=== PATIENT | male | born 1965 | race Caucasian/White ===

== ENCOUNTER 2017-01-10 08:49 | Inpatient (IN) | payer OTHER ==
[~2017-01-10] VITALS: Ht 152.4 cm; Wt 99.0 kg
--- NOTE | ~2017-01-10 | OP ---
Record Of Operation [facility] [address] [place]. [address] NAME: JOO PLASENCIA : 67 STATUS : ADM IN PAT#: [id number] AGE: 51 ADM/REG DATE : 01/10/17 MR#: [id number] REPORT SERV DATE: 01/14/17 DICTATED BY: JATIN CONTRERAS DATE: 01/14/17 REPORT STATUS : Draft TRANSCRIBED BY: MODL DATE: 01/14/17 DATE OF PROCEDURE: 01/14/2017 PREOPERATIVE DIAGNOSIS: 1. NSTEMI. 2. Three-vessel coronary disease. 3. Unstable angina. 4. Hypertension. 5. Hyperlipidemia. 6. Obstructive sleep apnea. 7. Tobacco abuse. POSTOPERATIVE DIAGNOSIS: 1. NSTEMI. 2. Three-vessel coronary disease. 3. Unstable angina. 4. Hypertension. 5. Hyperlipidemia. 6. Obstructive sleep apnea. 7. Tobacco abuse. OPERATION AND PROCEDURE PERFORMED: 1. Median sternotomy. 2. Extracorporeal circulation. 3. Urgent coronary artery bypass grafting x4, CHOPRA to left anterior descending, reverse greater saphenous vein graft to obtuse marginal #1, reverse greater saphenous vein graft to posterolateral branch from the left and reverse greater saphenous vein graft to the posterior descending artery. 4. NATACHA. 5. Endoscopic vein harvest to the right leg. 6. Prevena dressing placement. TELEPHONER: Jean Contreras. ANESTHESIOLOGIST: Dr. Bong Oquendo. TUBES AND DRAINS: A 24-Tunisian Tyson to the left; 32 straight mediastinal; atrial and ventricular pacing wires. POSTOPERATIVE CONDITION: Stable to CVICU. COMPLICATIONS: None. INTRAOPERATIVE FINDINGS: There were good targets generally with the exception of the LAD which was diffusely diseased. There was good ventricle. There was good conduit. There was no area to graft on the first diagonal. Unfortunately the vessel was too small after all of Record Of Operation [facility] [address] [place] [place]. [address] NAME: JOO PLASENCIA : 67 STATUS : ADM IN PAT#: [id number] AGE: 51 ADM/REG DATE : 01/10/17 MR#: [id number] REPORT SERV DATE: 01/14/17 DICTATED BY: JATIN CONTRERAS DATE: 01/14/17 REPORT STATUS : Draft TRANSCRIBED BY: MODL DATE: 01/14/17 the stents that were placed in it. It was less than a millimeter distal to the most distal part of the stent. Transesophageal echo pre shows EF 50%, trace MR, no AI, no . Post bypass showed EF 55 with trace MR, no AI, no grafts. DETAILS OF CARDIOPULMONARY BYPASS GRAFTIN. Graft #1, CHOPRA to left anterior descending was 1.75 mm target. 2. Graft #2, reverse greater saphenous vein graft to obtuse marginal #1, this was a 2 mm target. 3. Graft #3, reverse greater saphenous vein graft to posterolateral branch. This was a 1.75 mm target. 4. Graft #4, reverse greater saphenous vein graft to posterior descending artery. This was a 1.75 mm target. The LAD was diffusely diseased. There was excellent Doppler signals both pre and post protamine in all grafts. INDICATIONS FOR PROCEDURE: Mr. Plasencia is a 51-year-old gentleman with history of tobacco abuse and previous coronary interventions who presented to the ER with chest pain. He was found to have an NSTEMI. He was kept in the hospital for Plavix washout. Risks, benefits, and alternatives were discussed with the patient including but not limited to, bleeding, infection, stroke, , heart attack, need for future operations. All questions were answered. STS risks were discussed with the patient as well. Mortality risk less than 2%. Overall complication rate less than 20% were discussed with the patient and the family. All questions were answered. DETAILS OF PROCEDURE: The patient was brought to the operating room, placed supine on the operating room table. After satisfactory induction of general endotracheal anesthesia, he was prepped and draped in the usual sterile fashion. Working simultaneously, a median sternotomy was performed. Endoscopic vein harvest was performed from the right leg. Skin and subcutaneous tissues were divided. Clavipectoral fascia was divided. The sternum was divided in the midline. Sternal retractor was placed. Internal mammary artery was then harvested after placing the Rultract retractor from its takeoff under the subclavian vein to the bifurcation of the diaphragm. Systemic heparinization was achieved. After 3 minutes, the pedicle was clipped and divided at the bifurcation of the diaphragm. It was infiltrated with papaverine. Hemostasis was obtained. A 24-Tunisian Tyson was placed in the left pleural space and exteriorized. Rultract retractor was removed. Sternal retractor was placed. Thymic tissue was divided in the midline of the innominate vein. Pericardium was opened in the midline and T'd at the diaphragm. Pericardial well was created. Ascending aortic cannulation was achieved on the lesser curve of the aorta distal to the takeoff of the left subclavian through dual pursestring, antegrade root vent cardioplegia tack was placed and a dual stage venous cannula was placed through a pursestring in the right atrial appendage. The conduit was brought up and prepared for bypass. The internal mammary artery was brought through a wide V in the pericardium. After documentation of an adequate ACT, cardiopulmonary bypass was initiated. Targets were inspected. Targets were as mentioned in the findings of note, dual first diagonal. There was no area to graft secondary to multiple stents and the area distal to the stent, most distal portion of the stent being less than a millimeter in size. [place] this was too small to be able to bypass. Cross-clamp was brought up. Heart was arrested with cold antegrade cardioplegia. Intermittent cardioplegia was administered every 15 to 20 minutes throughout the remainder of the cross clamp. The distal Record Of Operation [facility] [address] [place]. [address] NAME: JOO PLASENCIA : 67 STATUS : ADM IN [facility]#: [id number] AGE: 51 ADM/REG DATE : 01/10/17 MR#: [id number] REPORT SERV DATE: 01/14/17 DICTATED BY: JATIN CONTRERAS DATE: 01/14/17 REPORT STATUS : Draft TRANSCRIBED BY: MAR DATE: 01/14/17 anastomoses were then performed as mentioned in the findings. All distal anastomoses were performed with 8-0 Surgipro. The veins were cut to length, spatulated, and running continuous anastomoses were then performed in an end-to-side fashion between the vein and the ascending aorta after enlarging the proximal aortotomies with 5.2 mm punch vein graft, markers were placed. The internal mammary artery was brought down through a wide V in the pericardium and anastomosed to a soft spot on the anterior surface of the LAD. There was disease distal to this that could be palpated, but however did not find a soft spot to be able to clear the distal disease. The vein grafts were de-aired. The cross-clamp was removed. There had been excellent flow in the left internal mammary artery and in the LAD both proximal and distal to the anastomosis. Pedicle was attached to the heart in two places. Atrial and ventricular pacing wires were placed. The patient was able to be weaned from cardiopulmonary bypass without incident. Protamine was administered. The patient was decannulated. All cannulation sites were oversewn with 4-0 Prolene. The hemostasis was obtained. The pericardium was loosely reapproximated over the ascending aorta and over the RV. A 32-Tunisian chest tube was placed in the anterior mediastinum, exteriorized and secured. The sternum was then reapproximated using stainless steel sternal wires. Some of these were double wires. Clavipectoral fascia was reapproximated using running #1 StrataFix and subcutaneous tissues closed using 2-0 Monocryl and the skin closed with a 2-0 StrataFix. Prevena dressing was placed. The patient was transferred to the CVICU in critical, stable condition. [facility] Jatin Contreras MD / [id number] CC: Mitchell Russo MD
--- NOTE | ~2017-01-10 | CN ---
Consultation Report [facility] [address] [place]. [address] NAME: JOO DONG : 67 STATUS : ADM IN PAT#: [id number] AGE: 51 ADM/REG DATE : 01/10/17 MR#: [id number] REPORT SERV DATE: 01/11/17 DICTATED BY: DARIUS OLVERA DATE: 01/10/17 REPORT STATUS : Draft TRANSCRIBED BY: MODL DATE: 01/10/17 CONSULTATION NOTE DATE OF CONSULTATION: 01/10/2017 ATTENDING VICE PRESIDENT COMPLIANCE: Praveen Stevens M.D. REASON FOR CONSULTATION: Three-vessel flow-limiting coronary artery disease, consideration for urgent coronary artery bypass grafting in the context of recent non-ST elevation myocardial infarction. CHIEF COMPLAINT: "I had chest pain yesterday." HISTORY OF PRESENT ILLNESS: This is a 51-year-old white male with history of coronary disease and five or six previously placed stents, who also has a family history of coronary disease. He smokes up to two packs per day of cigarettes, has not smoked in the last two days since admission to the hospital. He tells me that yesterday he had onset of severe substernal chest pain that occurred at rest. He waited for about 45 minutes and then went to the emergency department at [facility], and there he was given nitroglycerin which relieved his pain. His troponin I was initially mildly elevated and increased up to 1.46. His EKG was abnormal showing Q-waves and T-wave changes in the inferior leads. He did not have any further chest discomfort and continues to be pain-free. He was transferred to [facility] for coronary arteriogram and this demonstrated severe three-vessel flow-limiting coronary artery disease, with mildly depressed left ventricular function and inferior hypokinesis on ventriculogram. We were asked to see for consideration of urgent coronary artery bypass grafting and this was discussed with the patient and his family in the room today. PRIOR MEDICAL HISTORY: 1. Coronary artery disease, status post previous PCI with six stents. 2. Obstructive sleep apnea, wears CPAP. 3. Hypertension, on medication. 4. Hyperlipidemia, on medications. 5. Umbilical hernia. 6. Tobacco abuse. 7. Alcohol abuse. MEDICATIONS: Taken at home include aspirin 325 mg daily, Lipitor 40 mg p.o. h.s., lisinopril 10 mg daily, metoprolol 25 mg p.o. daily, Plavix 75 mg p.o. daily. SOCIAL HISTORY: He is , works in a machine shop, and drinks beer on a daily basis. He reports that he smokes up to two packs per day of cigarettes and has for about 25 years. His last cigarette was when he came to the hospital yesterday. Consultation Report [address] [place]. [address] NAME: JOO DONG : 67 STATUS : ADM IN [facility]#: [id number] AGE: 51 ADM/REG DATE : 01/10/17 MR#: [id number] REPORT SERV DATE: 01/11/17 DICTATED BY: DARIUS OLVERA DATE: 01/10/17 REPORT STATUS : Draft TRANSCRIBED BY: MAR DATE: 01/10/17 FAMILY HISTORY: Father with high blood pressure and hypercholesterolemia and heart failure, mother with hypertension. Mother is living, father age 67. REVIEW OF SYSTEMS: GENERAL: Negative for any recent weight change, fevers, chills, night sweats, or malaise. Denies any bone or joint pain. ENT: Negative. RESPIRATORY: Positive for occasional cough, more so when he is not smoking cigarettes. Denies any history of COPD or wheezing. CV: Positive for prior myocardial infarction, previous stenting, chest pain. Denies any palpitations. Denies any history of syncope or near syncope. GI: Negative. MUSCULOSKELETAL: Negative. : Negative. Neuro/psych: Negative. SKIN, HAIR, AND NAILS: Negative for lesions or masses or rashes. HEME/ONC: Negative for free bleeding, easy bruising, or prior cancer. ENDOCRINE: Negative for diabetes or thyroid problems. PHYSICAL EXAMINATION: GENERAL: This is a pleasant, obese white male, in no acute distress. VITAL SIGNS: Weight is 99.79 kg, height 180.34 cm, blood pressure 127/85, temperature 97.8, pulse 69 and regular, respirations 17 regular and unlabored, saturation is 93% on room air. HEENT: Normocephalic, balding, atraumatic. Pupils are equal, round, reactive to light and accommodation. Sclerae are clear, conjunctivae pink. No xanthelasma. Oral and buccal mucosa pink and moist. Teeth are nicotine stained. NECK: Supple. No restricted range of motion. No carotid bruits. No jugular venous distention. CHEST: No deformity. No use of accessory muscles. He has inspiratory rhonchi on the left, no wheezes. No crackles. BREASTS: Not examined. CV: Regular rate and rhythm without murmur or rub. He has palpable and symmetric central and peripheral pulses. No clubbing, no cyanosis, no edema. He has some lower extremity varicosities noted on examination. ABDOMEN: Soft, obese, nontender with normoactive bowel sounds. No hepatosplenomegaly. /RECTAL: Declined. MUSCULOSKELETAL: No kyphoscoliosis, no asymmetry. NEUROLOGIC: Alert and oriented to day, date, place, and situation. Speech is clear, fluent, with no focal deficits. No tremors. SKIN, HAIR, AND NAILS: No lesions or masses. No bruises or rashes. He has tattoo over the left upper back. DATA: His troponin I at [facility] was 1.46. EKG showed normal sinus rhythm with Q-waves and T-wave changes in the inferior leads. His catheterization showed in-stent restenosis of the Consultation Report [address] [address] NAME: JOO DONG : 67 STATUS : ADM IN [facility]#: [id number] AGE: 51 ADM/REG DATE : 01/10/17 MR#: [id number] REPORT SERV DATE: 01/11/17 DICTATED BY: DARIUS OLVERA DATE: 01/10/17 REPORT STATUS : Draft TRANSCRIBED BY: MAR DATE: 01/10/17 right coronary artery with mid distal occlusion and a left to right collateralization. The LAD with proximal stenosis and diagonal with ostial stenosis. His circumflex showed in- stent restenoses of 99% that affected the obtuse marginal. The ventriculogram showed inferior hypokinesis. LABS: CBC showed WBC 7.3, hemoglobin 16.7 g, hematocrit 48.7%, platelets 170. Electrolyte profile; sodium 141, potassium 4.0, chloride 107, CO2 of 26, BUN 12, creatinine 1.0. Lipid profile showed total cholesterol elevated at 203, HDL is 47, LDL was elevated at 107, and triglycerides elevated at 246. IMPRESSION: 1. Three-vessel flow-limiting coronary artery disease. 2. Recent non-ST elevation myocardial infarction. 3. Tobacco abuse. 4. Alcohol abuse. PLAN: I discussed with the patient and his family today possible coronary artery bypass grafting, usual perioperative course, indications, benefits, and serious risks which include, but are not limited to things such as bleeding, need for blood or blood product transfusion and their attendant risks, damage to the kidneys including kidney failure and dialysis, damage to the liver or the lungs, heart attack, stroke, abnormal heart rhythm, deep sternal infection, mediastinitis, and even . The patient indicates his understanding and is willing to proceed. He does have targets that would make him an acceptable candidate for surgical revascularization. Using Society of Thor[employer] database, predicted risk of mortality was 0.557%, morbidity or mortality 8.107%. This was discussed with the patient his family today. Because of his chronic use of dual antiplatelet therapy with aspirin and Plavix, he will need time for platelet recovery. We will discuss with surgeons and then give the patient his family a time table of when we will be able to get his surgery done. We appreciate very much the opportunity to participate in this gentleman's care. Sincerely, JET/MAR Darius Olvera N.P. / [id number] CC: Mitchell Russo MD
[2017-01-10] MEDS ORDERED: ASA5GR PO (10:01)
[2017-01-10] MEDS ORDERED: LIPITOR40 PO (10:02)
[2017-01-10] MEDS ORDERED: PRIN10 PO (10:03)
[2017-01-10] MEDS ORDERED: MOMUD PO (10:04)
[2017-01-10 10:05] LABS: BASOPHILS 0.5 %; BASOPHILS ABSOLUTE 0.04 10/3/uL (0.0-0.16); EOSINOPHILS 5.8 %; EOSINOPHILS ABSOLUTE 0.42 10/3/uL (0.0-0.53); HEMATOCRIT 48.6 % (40.0-51.0); HEMOGLOBIN 16.7 g/dL (13.6-17.8); IMMATURE GRANULOCYTES 0.3 %; IMMATURE GRANULOCYTES ABSOLUTE 0.02 10/3/uL (0.0-0.11); LYMPHOCYTES ABSOLUTE 2.04 10/3/uL (0.67-4.30); MANUAL DIFF NO %; MEAN CORPUS HGB CONC 34.4 g/dL (32.0-36.0); MEAN CORPUSCULAR HEMOGLOB 32.7 pg (26.0-34.0); MEAN CORPUSCULAR VOLUME 95.3 fL (80-100); MEAN PLATELET VOLUME 9.8 fL (9.2-13.0); MONOCYTES 9.2 %; MONOCYTES ABSOLUTE 0.67 10/3/uL (0.21-1.20); NEUTROPHILS 56.2 %; NEUTROPHILS ABSOLUTE 4.09 10/3/uL (2.02-8.40); PLATELET COUNT 170 10/3/uL (150-400); RBC DISTRIBUTION WIDTH 13.5 % (12.0-16.0); WHITE BLOOD CELLS 7.3 10/3/uL (4.5-10.5)
[2017-01-10] MEDS ORDERED: HABIT21 TOP (10:06)
[2017-01-10] MEDS ORDERED: LOP50 PO (10:07)
[2017-01-10] MEDS ORDERED: PLAVIX PO (10:08)
[2017-01-10] MEDS ORDERED: 8 HOUR650 MG PO (10:12)
[2017-01-10 10:20] LABS: BUN (BLOOD UREA NITROGEN) 12 MG/DL (6-23); CALCIUM, SERUM 9.3 MG/DL (8.5-10.4); CHLORIDE, SERUM 107 MMOL/L (96-112); CHOL/HDL RATIO(NOT ORDER) 4.3 (0-5); CHOLESTEROL 203 MG/DL (< 200); CO2 (CARBON DIOXIDE) 26 MMOL/L (24-34); GFR AFRICAN AMERICAN 101 ML/MIN (>=60); GFR NON AFRICAN AMERICAN 87 ML/MIN (>=60); GLUCOSE, SERUM 103 MG/DL (60-99); HDL CHOLESTEROL 47 MG/DL (> 39); LDL CHOLESTEROL 107 MG/DL (< 130); NON-HDL CHOLESTEROL 156 MG/DL (< 160); SODIUM, SERUM 141 MMOL/L (135-148); TRIGLYCERIDE 246 MG/DL (< 150)
[2017-01-11 06:20] LABS: BASOPHILS 0.7 %; BASOPHILS ABSOLUTE 0.04 10/3/uL (0.0-0.16); EOSINOPHILS 4.1 %; EOSINOPHILS ABSOLUTE 0.25 10/3/uL (0.0-0.53); HEMATOCRIT 45.6 % (40.0-51.0); HEMOGLOBIN 15.4 g/dL (13.6-17.8); IMMATURE GRANULOCYTES 0.3 %; IMMATURE GRANULOCYTES ABSOLUTE 0.02 10/3/uL (0.0-0.11); LYMPHOCYTES 20.5 %; LYMPHOCYTES ABSOLUTE 1.25 10/3/uL (0.67-4.30); MANUAL DIFF NO %; MEAN CORPUS HGB CONC 33.8 g/dL (32.0-36.0); MEAN CORPUSCULAR HEMOGLOB 32.2 pg (26.0-34.0); MEAN CORPUSCULAR VOLUME 95.4 fL (80-100); MEAN PLATELET VOLUME 9.3 fL (9.2-13.0); MONOCYTES 9.9 %; NEUTROPHILS 64.5 %; NEUTROPHILS ABSOLUTE 3.93 10/3/uL (2.02-8.40); PLATELET COUNT 149 10/3/uL (150-400); RBC DISTRIBUTION WIDTH 13.5 % (12.0-16.0); RED CELL COUNT 4.78 10/6/uL (4.7-6.1); WHITE BLOOD CELLS 6.1 10/3/uL (4.5-10.5)
[2017-01-11 06:29] LABS: BUN (BLOOD UREA NITROGEN) 11 MG/DL (6-23); CALCIUM, SERUM 8.8 MG/DL (8.5-10.4); CHLORIDE, SERUM 108 MMOL/L (96-112); CO2 (CARBON DIOXIDE) 25 MMOL/L (24-34); CREATININE 0.96 MG/DL (0.70-1.30); GFR AFRICAN AMERICAN 106 ML/MIN (>=60); GFR NON AFRICAN AMERICAN 92 ML/MIN (>=60); GLUCOSE, SERUM 105 MG/DL (60-99); POTASSIUM, SERUM 3.8 MMOL/L (3.5-5.3); SODIUM, SERUM 141 MMOL/L (135-148)
[2017-01-11 11:55] LABS: HEMATOCRIT 46.2 % (40.0-51.0); HEMOGLOBIN 15.4 g/dL (13.6-17.8)
[2017-01-11 14:11] LABS: PARTIAL THROMBO TIME 27.5 SEC (22.5-37.2); PROTIME (NOT ORD) 13.3 SEC (12.0-14.5)
[2017-01-11] MEDS ORDERED: ATIVAN 1 MG IV (15:38)
[2017-01-11] MEDS ORDERED: NITROSTAT0.4 MG SL (15:39)
[2017-01-11] MEDS ORDERED: ONDANSETRON IV (15:40)
[2017-01-11] MEDS ORDERED: THERGRANM PO (15:42)
[2017-01-11] MEDS ORDERED: HABIT21 TOP (15:42)
[2017-01-11] MEDS ORDERED: FOLIC PO (15:43)
[2017-01-11] MEDS ORDERED: CYANO1000T PO (15:43)
[2017-01-11] MEDS ORDERED: TOPXL25 PO (16:19)
[2017-01-12 04:27] LABS: BASOPHILS 0.7 %; BASOPHILS ABSOLUTE 0.05 10/3/uL (0.0-0.16); EOSINOPHILS 4.6 %; EOSINOPHILS ABSOLUTE 0.33 10/3/uL (0.0-0.53); HEMATOCRIT 47.5 % (40.0-51.0); HEMOGLOBIN 16.3 g/dL (13.6-17.8); IMMATURE GRANULOCYTES 0.4 %; IMMATURE GRANULOCYTES ABSOLUTE 0.03 10/3/uL (0.0-0.11); LYMPHOCYTES 29.8 %; LYMPHOCYTES ABSOLUTE 2.16 10/3/uL (0.67-4.30); MEAN CORPUS HGB CONC 34.3 g/dL (32.0-36.0); MEAN CORPUSCULAR HEMOGLOB 32.7 pg (26.0-34.0); MEAN CORPUSCULAR VOLUME 95.4 fL (80-100); MEAN PLATELET VOLUME 9.5 fL (9.2-13.0); MONOCYTES 9.4 %; MONOCYTES ABSOLUTE 0.68 10/3/uL (0.21-1.20); NEUTROPHILS 55.1 %; NEUTROPHILS ABSOLUTE 3.99 10/3/uL (2.02-8.40); PLATELET COUNT 151 10/3/uL (150-400); RBC DISTRIBUTION WIDTH 13.2 % (12.0-16.0); RED CELL COUNT 4.98 10/6/uL (4.7-6.1); WHITE BLOOD CELLS 7.2 10/3/uL (4.5-10.5)
[2017-01-12 04:28] LABS: MANUAL DIFF NO %
[2017-01-12 04:38] LABS: BUN (BLOOD UREA NITROGEN) 12 MG/DL (6-23); CHLORIDE, SERUM 106 MMOL/L (96-112); CO2 (CARBON DIOXIDE) 25 MMOL/L (24-34); CREATININE 1.01 MG/DL (0.70-1.30); GFR AFRICAN AMERICAN 100 ML/MIN (>=60); GFR NON AFRICAN AMERICAN 86 ML/MIN (>=60); GLUCOSE, SERUM 101 MG/DL (60-99); POTASSIUM, SERUM 3.8 MMOL/L (3.5-5.3); SODIUM, SERUM 139 MMOL/L (135-148)
[2017-01-12 10:22] LABS: TEG - ANGLE 54.8 DEG (53-72); TEG - MAXIMUM AMPLITUDE 67.2 MM (50-70)
[2017-01-12 10:23] LABS: TEG - COAGULATION INDEX -3.1 (-3 TO 3); TEG PLAVIX/EFFIENT/TICLID(ADP) 69.5 % INHIB (< 40)
[2017-01-13 02:32] LABS: BASOPHILS 0.6 %; BASOPHILS ABSOLUTE 0.05 10/3/uL (0.0-0.16); EOSINOPHILS 5.2 %; EOSINOPHILS ABSOLUTE 0.45 10/3/uL (0.0-0.53); HEMATOCRIT 47.5 % (40.0-51.0); HEMOGLOBIN 16.3 g/dL (13.6-17.8); IMMATURE GRANULOCYTES 0.2 %; IMMATURE GRANULOCYTES ABSOLUTE 0.02 10/3/uL (0.0-0.11); LYMPHOCYTES 27.2 %; LYMPHOCYTES ABSOLUTE 2.36 10/3/uL (0.67-4.30); MEAN CORPUS HGB CONC 34.3 g/dL (32.0-36.0); MEAN CORPUSCULAR HEMOGLOB 32.5 pg (26.0-34.0); MEAN CORPUSCULAR VOLUME 94.6 fL (80-100); MEAN PLATELET VOLUME 9.5 fL (9.2-13.0); MONOCYTES 10.3 %; MONOCYTES ABSOLUTE 0.89 10/3/uL (0.21-1.20); NEUTROPHILS 56.5 %; PLATELET COUNT 161 10/3/uL (150-400); RBC DISTRIBUTION WIDTH 13.3 % (12.0-16.0); RED CELL COUNT 5.02 10/6/uL (4.7-6.1); WHITE BLOOD CELLS 8.7 10/3/uL (4.5-10.5)
[2017-01-13 02:33] LABS: MANUAL DIFF NO %
[2017-01-13 02:51] LABS: ALBUMIN 3.9 G/DL (3.5-5.0); ALKALINE PHOSPHATASE 91 U/L (45-117); BUN (BLOOD UREA NITROGEN) 10 MG/DL (6-23); CALCIUM, SERUM 9.4 MG/DL (8.5-10.4); CHLORIDE, SERUM 105 MMOL/L (96-112); CREATININE 1.05 MG/DL (0.70-1.30); GFR AFRICAN AMERICAN 95 ML/MIN (>=60); GFR NON AFRICAN AMERICAN 82 ML/MIN (>=60); GLOBULIN 3.8 G/DL (2.5-4.1); GLUCOSE, SERUM 104 MG/DL (60-99); IRON BINDING CAPACITY 391 MCG/DL (250-450); POTASSIUM, SERUM 4.3 MMOL/L (3.5-5.3); SGPT(ALT) 52 U/L (5-65); SODIUM, SERUM 139 MMOL/L (135-148); TOTAL BILIRUBIN 0.3 MG/DL (0-1.2); TOTAL PROTEIN 7.7 G/DL (6.0-8.5)
[2017-01-13 03:20] LABS: PARTIAL THROMBO TIME 139.8 SEC (22.5-37.2)
[2017-01-13 03:30] LABS: % IRON SAT 41 % (20-50); CO2 (CARBON DIOXIDE) 30 MMOL/L (24-34); IRON, SERUM 161 MCG/DL (35-150); SGOT(AST) 32 U/L (5-40)
[2017-01-13 04:04] LABS: PROTIME (NOT ORD) 12.7 SEC (12.0-14.5)
[2017-01-13 08:53] LABS: TEG - ANGLE 51.5 DEG (53-72); TEG - COAGULATION INDEX -4.7 (-3 TO 3); TEG - MAXIMUM AMPLITUDE 60.6 MM (50-70); TEG - RATE 10.9 MIN (5.0-10.0)
[2017-01-13 08:54] LABS: MAX AMP (ADP) 40.6 MM (35-68); TEG PLAVIX/EFFIENT/TICLID(ADP) 40.7 % INHIB (< 40)
[2017-01-13 11:58] LABS: WBC (NOT ORDERED) (RFLEX) 0 (0-5)
[2017-01-13 12:11] LABS: ASCORBIC ACID (UR NOT ORDER) NEG (NEG); BILIRUBIN, URINE NEGATIVE (NEG); KETONE, URINE NEGATIVE (NEG); LEUKOCYTE ESTERASE(NOT OR NEG (NEG)
[2017-01-14 04:29] LABS: BASOPHILS 0.6 %; BASOPHILS ABSOLUTE 0.05 10/3/uL (0.0-0.16); EOSINOPHILS 5.2 %; EOSINOPHILS ABSOLUTE 0.45 10/3/uL (0.0-0.53); HEMATOCRIT 49.1 % (40.0-51.0); HEMOGLOBIN 16.8 g/dL (13.6-17.8); IMMATURE GRANULOCYTES 0.2 %; IMMATURE GRANULOCYTES ABSOLUTE 0.02 10/3/uL (0.0-0.11); LYMPHOCYTES 27.9 %; LYMPHOCYTES ABSOLUTE 2.42 10/3/uL (0.67-4.30); MEAN CORPUS HGB CONC 34.2 g/dL (32.0-36.0); MEAN CORPUSCULAR HEMOGLOB 32.1 pg (26.0-34.0); MEAN CORPUSCULAR VOLUME 93.9 fL (80-100); MEAN PLATELET VOLUME 9.8 fL (9.2-13.0); MONOCYTES 11.2 %; MONOCYTES ABSOLUTE 0.97 10/3/uL (0.21-1.20); NEUTROPHILS 54.9 %; NEUTROPHILS ABSOLUTE 4.76 10/3/uL (2.02-8.40); PLATELET COUNT 165 10/3/uL (150-400); RBC DISTRIBUTION WIDTH 13.3 % (12.0-16.0); RED CELL COUNT 5.23 10/6/uL (4.7-6.1); WHITE BLOOD CELLS 8.7 10/3/uL (4.5-10.5)
[2017-01-14 04:30] LABS: MANUAL DIFF NO %
[2017-01-14 04:33] LABS: PROTIME (NOT ORD) 13.3 SEC (12.0-14.5)
[2017-01-14 04:46] LABS: % IRON SAT 38 % (20-50); A/G RATIO 1.1 (0.7-1.9); ALBUMIN 4.1 G/DL (3.5-5.0); ALKALINE PHOSPHATASE 89 U/L (45-117); BUN (BLOOD UREA NITROGEN) 11 MG/DL (6-23); CALCIUM, SERUM 9.5 MG/DL (8.5-10.4); CHLORIDE, SERUM 103 MMOL/L (96-112); CO2 (CARBON DIOXIDE) 27 MMOL/L (24-34); CREATININE 1.08 MG/DL (0.70-1.30); GFR AFRICAN AMERICAN 92 ML/MIN (>=60); GFR NON AFRICAN AMERICAN 80 ML/MIN (>=60); GLOBULIN 3.6 G/DL (2.5-4.1); GLUCOSE, SERUM 100 MG/DL (60-99); IRON BINDING CAPACITY 382 MCG/DL (250-450); IRON, SERUM 147 MCG/DL (35-150); POTASSIUM, SERUM 3.7 MMOL/L (3.5-5.3); SGOT(AST) 37 U/L (5-40); SGPT(ALT) 74 U/L (5-65); SODIUM, SERUM 139 MMOL/L (135-148); TOTAL BILIRUBIN 0.6 MG/DL (0-1.2); TOTAL PROTEIN 7.7 G/DL (6.0-8.5)
[2017-01-14 05:19] LABS: TEG - ANGLE 57 DEG (53-72); TEG - COAGULATION INDEX -2.8 (-3 TO 3); TEG - MAXIMUM AMPLITUDE 63.4 MM (50-70); TEG - RATE 9.5 MIN (5.0-10.0)
[2017-01-14 05:20] LABS: MAX AMP (ADP) 44.1 MM (35-68); TEG PLAVIX/EFFIENT/TICLID(ADP) 36.1 % INHIB (< 40)
[2017-01-14 12:20] LABS: BE (BASE EXCESS) -2.6 MEQ/L (0 +/- 2.5); INSTRUMENT SERIAL # 11843; PCO2 (CO2 TENSION) 41 MMHG (35-45); PO2 (O2 TENSION) 140 MMHG (79-93); pH 7.36 (7.37-7.43)
[2017-01-14 12:21] LABS: CARBOXYHEMOGLOBIN 0.6 % (0-3); HCO3 (ACTUAL BICARBONATE) 22.6 MEQ/L (23-27); METHEMOGLOBIN 0.4 % (0-3); MODE SIMV; O2 CONTENT 20.7 VOL% (18-24); OPERATOR ID 19104; SAMPLE Arterial; TIDAL VOLUME 700 ML
[2017-01-14 12:29] LABS: HEMOGLOBIN 14.3 g/dL (13.6-17.8); PLATELET COUNT 124 10/3/uL (150-400)
[2017-01-14 12:30] LABS: HEMATOCRIT 41.3 % (40.0-51.0)
[2017-01-14 12:37] LABS: FIBRINOGEN 327 MG/DL (230-462); INTERNATIONAL NORMAL RATI 1.2 UNITS (-)
[2017-01-14 12:45] LABS: BUN (BLOOD UREA NITROGEN) 13 MG/DL (6-23); CALCIUM, SERUM 9.3 MG/DL (8.5-10.4); CHLORIDE, SERUM 110 MMOL/L (96-112); CO2 (CARBON DIOXIDE) 24 MMOL/L (24-34); CREATININE 1.28 MG/DL (0.70-1.30); GFR AFRICAN AMERICAN 75 ML/MIN (>=60); GFR NON AFRICAN AMERICAN 65 ML/MIN (>=60); GLUCOSE, SERUM 110 MG/DL (60-99); SODIUM, SERUM 141 MMOL/L (135-148)
[2017-01-14 15:48] LABS: BE (BASE EXCESS) -3.9 MEQ/L (0 +/- 2.5); CARBOXYHEMOGLOBIN 0.7 % (0-3); DEVICE HFNC; HCO3 (ACTUAL BICARBONATE) 23.1 MEQ/L (23-27); HEMOBLOGIN CONTENT 16.7 G/DL (14-18); INSTRUMENT SERIAL # 11843; METHEMOGLOBIN 0.3 % (0-3); O2 CONTENT 22.2 VOL% (18-24); OPERATOR ID 19104; PCO2 (CO2 TENSION) 49 MMHG (35-45); PO2 (O2 TENSION) 88 MMHG (79-93); SAMPLE Arterial; pH 7.29 (7.37-7.43)
[2017-01-14 17:22] LABS: HEMATOCRIT 45.4 % (40.0-51.0)
[2017-01-14 17:30] LABS: POTASSIUM, SERUM 4.2 MMOL/L (3.5-5.3)
[2017-01-15 01:26] LABS: HEMOGLOBIN 15.5 g/dL (13.6-17.8)
[2017-01-15 01:34] LABS: POTASSIUM, SERUM 4.3 MMOL/L (3.5-5.3)
[2017-01-15 04:24] LABS: BASOPHILS 0.1 %; BASOPHILS ABSOLUTE 0.01 10/3/uL (0.0-0.16); EOSINOPHILS 0 %; HEMATOCRIT 43.3 % (40.0-51.0); HEMOGLOBIN 14.6 g/dL (13.6-17.8); IMMATURE GRANULOCYTES 0.3 %; IMMATURE GRANULOCYTES ABSOLUTE 0.05 10/3/uL (0.0-0.11); LYMPHOCYTES 6.6 %; LYMPHOCYTES ABSOLUTE 1.02 10/3/uL (0.67-4.30); MEAN CORPUS HGB CONC 33.7 g/dL (32.0-36.0); MEAN CORPUSCULAR HEMOGLOB 32.1 pg (26.0-34.0); MEAN CORPUSCULAR VOLUME 95.2 fL (80-100); MEAN PLATELET VOLUME 10.4 fL (9.2-13.0); MONOCYTES 10.8 %; MONOCYTES ABSOLUTE 1.66 10/3/uL (0.21-1.20); NEUTROPHILS 82.2 %; NEUTROPHILS ABSOLUTE 12.68 10/3/uL (2.02-8.40); PLATELET COUNT 141 10/3/uL (150-400); RBC DISTRIBUTION WIDTH 13.8 % (12.0-16.0); RED CELL COUNT 4.55 10/6/uL (4.7-6.1)
[2017-01-15 04:25] LABS: WHITE BLOOD CELLS 15.4 10/3/uL (4.5-10.5)
[2017-01-15 04:26] LABS: MANUAL DIFF NO %
[2017-01-15 04:39] LABS: CALCIUM, SERUM 8.8 MG/DL (8.5-10.4); CHLORIDE, SERUM 106 MMOL/L (96-112); CO2 (CARBON DIOXIDE) 25 MMOL/L (24-34); CREATININE 1.18 MG/DL (0.70-1.30); GFR AFRICAN AMERICAN 83 ML/MIN (>=60); GFR NON AFRICAN AMERICAN 72 ML/MIN (>=60); POTASSIUM, SERUM 4.1 MMOL/L (3.5-5.3); SODIUM, SERUM 139 MMOL/L (135-148)
[2017-01-15 04:42] LABS: BUN (BLOOD UREA NITROGEN) 19 MG/DL (6-23); GLUCOSE, SERUM 91 MG/DL (60-99)
[2017-01-15 04:43] LABS: INTERNATIONAL NORMAL RATI 1.1 UNITS (-); PROTIME (NOT ORD) 14.1 SEC (12.0-14.5)
[2017-01-16 07:00] LABS: BASOPHILS 0.1 %; BASOPHILS ABSOLUTE 0.02 10/3/uL (0.0-0.16); EOSINOPHILS 0.1 %; EOSINOPHILS ABSOLUTE 0.01 10/3/uL (0.0-0.53); HEMATOCRIT 41.9 % (40.0-51.0); HEMOGLOBIN 14.1 g/dL (13.6-17.8); IMMATURE GRANULOCYTES 0.4 %; IMMATURE GRANULOCYTES ABSOLUTE 0.07 10/3/uL (0.0-0.11); LYMPHOCYTES 8.2 %; LYMPHOCYTES ABSOLUTE 1.39 10/3/uL (0.67-4.30); MEAN CORPUS HGB CONC 33.7 g/dL (32.0-36.0); MEAN CORPUSCULAR HEMOGLOB 32.6 pg (26.0-34.0); MEAN PLATELET VOLUME 10.3 fL (9.2-13.0); MONOCYTES 15.1 %; MONOCYTES ABSOLUTE 2.58 10/3/uL (0.21-1.20); NEUTROPHILS 76.1 %; NEUTROPHILS ABSOLUTE 12.96 10/3/uL (2.02-8.40); PLATELET COUNT 139 10/3/uL (150-400); RBC DISTRIBUTION WIDTH 13.7 % (12.0-16.0); RED CELL COUNT 4.32 10/6/uL (4.7-6.1)
[2017-01-16 07:03] LABS: MANUAL DIFF NO %
[2017-01-16 07:12] LABS: BUN (BLOOD UREA NITROGEN) 19 MG/DL (6-23); CALCIUM, SERUM 9.1 MG/DL (8.5-10.4); CHLORIDE, SERUM 102 MMOL/L (96-112); CO2 (CARBON DIOXIDE) 29 MMOL/L (24-34); CREATININE 1.11 MG/DL (0.70-1.30); GFR AFRICAN AMERICAN 89 ML/MIN (>=60); GFR NON AFRICAN AMERICAN 77 ML/MIN (>=60); GLUCOSE, SERUM 135 MG/DL (60-99); POTASSIUM, SERUM 4.3 MMOL/L (3.5-5.3); SODIUM, SERUM 137 MMOL/L (135-148)
[2017-01-17 06:36] LABS: BASOPHILS 0.2 %; BASOPHILS ABSOLUTE 0.02 10/3/uL (0.0-0.16); EOSINOPHILS 0.5 %; EOSINOPHILS ABSOLUTE 0.06 10/3/uL (0.0-0.53); HEMATOCRIT 38.6 % (40.0-51.0); HEMOGLOBIN 12.9 g/dL (13.6-17.8); IMMATURE GRANULOCYTES 0.3 %; IMMATURE GRANULOCYTES ABSOLUTE 0.04 10/3/uL (0.0-0.11); LYMPHOCYTES 12.9 %; LYMPHOCYTES ABSOLUTE 1.65 10/3/uL (0.67-4.30); MANUAL DIFF NO %; MEAN CORPUS HGB CONC 33.4 g/dL (32.0-36.0); MEAN CORPUSCULAR HEMOGLOB 32.2 pg (26.0-34.0); MEAN CORPUSCULAR VOLUME 96.3 fL (80-100); MEAN PLATELET VOLUME 9.8 fL (9.2-13.0); MONOCYTES 14.9 %; MONOCYTES ABSOLUTE 1.91 10/3/uL (0.21-1.20); NEUTROPHILS 71.2 %; PLATELET COUNT 146 10/3/uL (150-400); RBC DISTRIBUTION WIDTH 13.6 % (12.0-16.0); RED CELL COUNT 4.01 10/6/uL (4.7-6.1); WHITE BLOOD CELLS 12.8 10/3/uL (4.5-10.5)
[2017-01-17 06:38] LABS: CALCIUM, SERUM 8.7 MG/DL (8.5-10.4); CHLORIDE, SERUM 103 MMOL/L (96-112); CO2 (CARBON DIOXIDE) 27 MMOL/L (24-34); CREATININE 0.77 MG/DL (0.70-1.30); GFR AFRICAN AMERICAN 123 ML/MIN (>=60); GFR NON AFRICAN AMERICAN 106 ML/MIN (>=60); POTASSIUM, SERUM 3.8 MMOL/L (3.5-5.3); SODIUM, SERUM 137 MMOL/L (135-148)
[2017-01-17 06:39] LABS: BUN (BLOOD UREA NITROGEN) 15 MG/DL (6-23); GLUCOSE, SERUM 98 MG/DL (60-99)
[2017-01-18 06:00] LABS: BASOPHILS 0.3 %; BASOPHILS ABSOLUTE 0.03 10/3/uL (0.0-0.16); EOSINOPHILS 1.8 %; EOSINOPHILS ABSOLUTE 0.18 10/3/uL (0.0-0.53); HEMATOCRIT 37.1 % (40.0-51.0); HEMOGLOBIN 12.6 g/dL (13.6-17.8); IMMATURE GRANULOCYTES 0.3 %; IMMATURE GRANULOCYTES ABSOLUTE 0.03 10/3/uL (0.0-0.11); LYMPHOCYTES 21.6 %; LYMPHOCYTES ABSOLUTE 2.18 10/3/uL (0.67-4.30); MEAN CORPUSCULAR HEMOGLOB 32.5 pg (26.0-34.0); MEAN CORPUSCULAR VOLUME 95.6 fL (80-100); MONOCYTES 15.2 %; MONOCYTES ABSOLUTE 1.54 10/3/uL (0.21-1.20); NEUTROPHILS 60.8 %; NEUTROPHILS ABSOLUTE 6.14 10/3/uL (2.02-8.40); PLATELET COUNT 183 10/3/uL (150-400); RBC DISTRIBUTION WIDTH 13.9 % (12.0-16.0); RED CELL COUNT 3.88 10/6/uL (4.7-6.1); WHITE BLOOD CELLS 10.1 10/3/uL (4.5-10.5)
[2017-01-18 06:02] LABS: MANUAL DIFF NO %
[2017-01-18 06:09] LABS: BUN (BLOOD UREA NITROGEN) 14 MG/DL (6-23); CALCIUM, SERUM 8.9 MG/DL (8.5-10.4); CHLORIDE, SERUM 103 MMOL/L (96-112); CO2 (CARBON DIOXIDE) 30 MMOL/L (24-34); CREATININE 0.89 MG/DL (0.70-1.30); GFR AFRICAN AMERICAN 116 ML/MIN (>=60); GFR NON AFRICAN AMERICAN 100 ML/MIN (>=60); GLUCOSE, SERUM 100 MG/DL (60-99); SODIUM, SERUM 138 MMOL/L (135-148)
[2017-01-18] MEDS ORDERED: LOP25 PO (12:56)
[2017-01-18] MEDS ORDERED: NORCO1 TA1 PO (12:58)
[2017-01-18] MEDS ORDERED: ASAB PO (12:59)
[2017-01-18] MEDS ORDERED: KLOR-CON20 MEQ PO (12:59)
[2017-01-18] MEDS ORDERED: L20 PO (12:59)
== END 2017-01-18 15:10 | disposition home or self-care (01) | DRG 234 ==
LOC: ENRESERVTM → ENRESERVDT → ENRESERV → CORLMH 08:49 → SSU1 09:39 → CORLMH 12:00 → 5NO 12:00 → CORLMH 13:30 → 5NO 17:43 → CVICU 01-14 11:26 → 5NO 01-15 16:54
PROVIDERS: Internal Medicine Cardiovascular Disease; Nurse Practitioner Family; Thoracic Surgery (Cardiothoracic Vascular Surgery)
PROC: 4A023N7 Measurement of Cardiac Sampling and Pressure, Left Heart, Percutaneous Approach (ICD-10-PCS; principal; 2017-01-10)
PROC: 021209W Bypass Coronary Artery, Three Arteries from Aorta with Autologous Venous Tissue, Open Approach (ICD-10-PCS; 2017-01-10)
PROC: B2111ZZ Fluoroscopy of Multiple Coronary Arteries using Low Osmolar Contrast (ICD-10-PCS; 2017-01-10)
PROC: B2151ZZ Fluoroscopy of Left Heart using Low Osmolar Contrast (ICD-10-PCS; 2017-01-10)
PROC: 02100Z9 Bypass Coronary Artery, One Artery from Left Internal Mammary, Open Approach (ICD-10-PCS; 2017-01-10)
PROC: 06BP4ZZ Excision of Right Saphenous Vein, Percutaneous Endoscopic Approach (ICD-10-PCS; 2017-01-14)
PROC: 5A1221Z Performance of Cardiac Output, Continuous (ICD-10-PCS; 2017-01-14)
PROC: B246ZZ4 Ultrasonography of Right and Left Heart, Transesophageal (ICD-10-PCS; 2017-01-14)
DX: I21.4 Non-ST elevation (NSTEMI) myocardial infarction (principal); T82.855A Stenosis of coronary artery stent, initial encounter; K62.5 Hemorrhage of anus and rectum; I10 Essential (primary) hypertension; F17.210 Nicotine dependence, cigarettes, uncomplicated; G47.33 Obstructive sleep apnea (adult) (pediatric); E78.5 Hyperlipidemia, unspecified; F10.10 Alcohol abuse, uncomplicated; K42.9 Umbilical hernia without obstruction or gangrene; I25.110 Atherosclerotic heart disease of native coronary artery with unstable angina pectoris
CPT/HCPCS: 36415; 71010; 71020; 71250; 80048; 80053; 80061; 81001; 82272; 82330; 82803; 82805; 82947; 82962; 83036; 83540; 83550; 83735; 84132; 84295; 85014; 85018; 85025; 85049; 85347; 85384; 85576; 85576-59; 85610; 85730; 86850; 86900; 86901; 86920; 87641; 93005; 93312; 93320; 93325; 93458; 93459; 93880; 94002; 94640; 94770; 99152; 99153; A9270-GY; C1713; C1769; C1887; C1894; G0365; J0360; J0690; J1644; J1956; J2150; J2250; J2370; J2405; J2440; J2720; J2930; J3010; J3370; J3411; J3475; J3480; P9045; P9047; Q9967